=== PATIENT | male | born 1955 | race American Indian/Alaskan Native ===

== ENCOUNTER 2019-07-10 19:30 | Emergency (ER) | payer SELFPAY ==
[2019-07-10 19:38] VITALS: BP 140/87
--- NOTE | 2019-07-10 21:04 | Event Note ---
ED Screening Note ED Screening Note: states he difficulty hearing out of the right ear, states his eye sight has slowly been declining was seen at [facility] was supposed to go back to [facility] for placement, states he did not have a ride there states that he wants "placement in a [facility]" states he is homeless This initial assessment/diagnostic orders/clinical plan/treatment(s) is/are subject to change based on patients health status, clinical progression and re- assessment by fellow clinical providers in the ED. Further treatment and workup at subsequent clinical providers discretion. Patient/guardian urged not to elope from the ED as their condition may be serious if not clinically assessed and managed.
--- NOTE | 2019-07-11 00:12 | Emergency Department Report ---
Chief Complaint: Medical Clearance Stated Complaint: NEEDS [facility] PLACMENT Time Seen by Provider: 07/10/19 21:01 - Exam Vital Signs: Vital Signs 07/10/19 19:36 Temperature 98.2 F Pulse Rate 105 H Respiratory 20 Rate Blood Pressure 140/87 O2 Sat by Pulse 96 Oximetry MSE screening note: Focused history and physical exam performed. Due to findings the following was ordered: ED Medical Decision Making - Medical Decision Making Mr. Diop is a 63-year-old male with a history of ruptured eardrum, hypertension, diabetes mellitus who presents to the emergency department for homelessness. He states that he is from [place]. He states that he is homeless. He has a history of schizoaffective disorder. Denies suicidal homicidal or homicidal ideation No auditory visual hallucinations. Des[facility] placement [facility] [facility]. He does not have an acute emergent medical condition. He appears well and ambulatory. It was suggested that he goes home a [facility] contact his family members for assistance. ED Disposition for MSE Clinical Impression: Encounter for medical screening examination Disposition: Z- ELOPED Condition: Stable
== END 2019-07-11 00:30 | disposition left against medical advice (07) ==
LOC: ED 19:30
DX: Z00.00 Encounter for general adult medical examination without abnormal findings (principal); I10 Essential (primary) hypertension; E11.9 Type 2 diabetes mellitus without complications; Z59.0 Homelessness
CPT/HCPCS: 99281

== ENCOUNTER 2019-07-11 01:47 | Emergency (ER) | payer MEDICAID ==
[2019-07-11] MEDS ORDERED: ZIPRASIDONE MESYLATE 20 MG VIAL IM STA (01:51)
--- NOTE | 2019-07-11 01:56 | Emergency Department Report ---
<SHIRAAWA - Last Filed: 07/11/19 03:03> ED Psych HPI - General Stated Complaint: MH Time Seen by Provider: 07/11/19 01:49 Source: patient Mode of arrival: Ambulatory Limitations: No Limitations - History of Present Illness Initial Comments: CC: "I'm homicidal." HPI: Mr. Diop is a 63 yo male who returns to the ED after recently eloping. He has hx of schizoaffective disorder, HTN and diabetes mellitus. He initially came to the ED because he desired placement for living arrangements. He then left the ED. He called 911 stating he was "homicidal". "I am going to f--- you up." He denies suicidal ideation. He states that "starr people are strange." He denies physical complaints other than a previous diagnosis of a ruptured ear drum. MD Complaint: other (homicidal ideation) -: unknown Associated Psychiatric Symptoms: homicidal ideation History of same: Yes Quality: constant Improves With: none Worsens With: none Context: other (unknown) Associated Symptoms: denies other symptoms - Related Data Home Medications Medication Instructions Recorded Confirmed Last Taken Metformin HCl [metFORMIN] 1,000 mg PO BID 06/02/19 07/11/19 06/02/19 10:00 Omeprazole 20 mg PO DAILY 06/02/19 07/11/19 06/02/19 10:00 Ondansetron [Zofran ODT TAB] 4 mg PO Q6HR PRN 06/02/19 07/11/19 06/02/19 10:00 Previous Rx's Medication Instructions Recorded Last Taken Type Amlodipine Besylate [Norvasc] 10 mg PO DAILY #60 06/09/19 Unknown Rx Benztropine [Cogentin] 0.5 mg PO DAILY #30 tablet 06/09/[address] [Depakote Dr] 250 mg PO BID #60 tablet 06/09/19 Unknown Rx Doxepin [SINEquan] 10 mg PO QHS #30 capsule 06/09/19 Unknown Rx Insulin Glargine [Lantus VIAL] 43 units SQ QHS #5 syr 06/09/19 Unknown Rx Levothyroxine [Synthroid] 25 mcg PO QAM #30 06/09/19 Unknown Rx Pantoprazole [Protonix TAB] 20 mg PO QDAY #30 tablet. 06/09/19 Unknown Rx busPIRone [Buspar] 10 mg PO BID #60 tablet 06/09/19 Unknown Rx lisinopriL [Zestril TAB] 10 mg PO DAILY #30 06/09/19 Unknown Rx metFORMIN [Glucophage] 1,000 mg PO BIDDIAB #60 tablet 06/09/19 Unknown Rx risperiDONE [RisperDAL] 1 mg PO BID #60 tablet 06/09/19 Unknown Rx Allergies Allergy/AdvReac Type Severity Reaction Status Date / Time No Known Allergies Allergy Verified 04/30/18 05:51 ED Review of Systems Comment: All other systems reviewed and negative Constitutional: denies: fever, malaise Respiratory: denies: cough Cardiovascular: denies: chest pain ED Past Medical Hx - Past Medical History Previous Medical History?: Yes Hx Hypertension: Yes Hx Diabetes: Yes Hx Psychiatric Treatment: Yes (psychosis. paranoia, schizoaffective) Hx Asthma: Yes Additional medical history: thyroid - Surgical History Additional Surgical History: ABD - Social History Smoking Status: Current Every Day Smoker Substance Use Type: Marijuana - Medications Home Medications: Home Medications Medication Instructions Recorded Confirmed Last Taken Type Metformin HCl [metFORMIN] 1,000 mg PO BID 06/02/19 07/11/19 06/02/19 10:00 History Omeprazole 20 mg PO DAILY 06/02/19 07/11/19 06/02/19 10:00 History Ondansetron [Zofran ODT TAB] 4 mg PO Q6HR PRN 06/02/19 07/11/19 06/02/19 10:00 History Amlodipine Besylate [Norvasc] 10 mg PO DAILY #60 06/09/19 07/11/19 Unknown Rx Benztropine [Cogentin] 0.5 mg PO DAILY #30 tablet 06/09/19 07/11/19 Unknown Rx Divalproex [Vashti Lovell] 250 mg PO BID #60 tablet 06/09/19 07/11/19 Unknown Rx Doxepin [SINEquan] 10 mg PO QHS #30 capsule 06/09/19 07/11/19 Unknown Rx Insulin Glargine [Lantus VIAL] 43 units SQ QHS #5 syr 06/09/19 07/11/19 Unknown Rx Levothyroxine [Synthroid] 25 mcg PO QAM #30 01/22/20 02/23/20 Unknown Rx Pantoprazole [Protonix TAB] 20 mg PO QDAY #30 tablet. 06/09/19 07/11/19 Unknown Rx busPIRone [Buspar] 10 mg PO BID #60 tablet 06/09/19 07/11/19 Unknown Rx lisinopriL [Zestril TAB] 10 mg PO DAILY #30 06/09/19 07/11/19 Unknown Rx metFORMIN [Glucophage] 1,000 mg PO BIDDIAB #60 tablet 06/09/19 07/11/19 Unknown Rx risperiDONE [RisperDAL] 1 mg PO BID #60 tablet 06/09/19 07/11/19 Unknown Rx ED Physical Exam - General Limitations: No Limitations General appearance: alert, in no apparent distress, other (appears well, ambulatoryh) - Head Head exam: Present: atraumatic, normocephalic - Eye Eye exam: Present: normal appearance - ENT ENT exam: Present: mucous membranes moist - Neck Neck exam: Present: normal inspection, full ROM - Respiratory Respiratory exam: Absent: respiratory distress - Cardiovascular Cardiovascular Exam: Absent: systolic murmur, diastolic murmur, rubs, gallop - GI/Abdominal GI/Abdominal exam: Present: soft, normal bowel sounds. Absent: distended, tenderness, guarding, rebound - Rectal Rectal exam: Present: deferred - Extremities Exam Extremities exam: Present: normal inspection - Back Exam Back exam: Present: normal inspection - Neurological Exam Neurological exam: Present: alert, oriented X3 - Psychiatric Psychiatric exam: Present: normal affect, agitated - Skin Skin exam: Present: warm, dry, intact, normal color. Absent: rash ED Medical Decision Making - Lab Data Result diagrams: 07/11/19 02:05 07/11/19 02:05 - Medical Decision Making Mr. Diop is a 63 yo male with schizoaffective disorder who returns to the ED with homicidal ideation. Due to poor insight and erratic impulsive behavior, he required chemical restraint upon arrival. He is medically clear for psychiatric care. Awaiting treatment recommendations by our psychiatric team. CBC chemistry within normal limits serum toxicology urine drug screen urinalysis within normal limits. Valproic acid level non therapeutic ED Disposition Clinical Impression: Encounter for medical screening examination, Schizo-affective schizophrenia Disposition: - TO HOME OR SELFCARE Condition: Stable Referrals: EMEKA HUGO MD [Primary Care Provider] - 3-5 Days <JACI SILVA - Last Filed: 07/11/19 14:21> ED Review of Systems ROS: Stated complaint: MH Other details as noted in HPI ED Course Vital Signs 07/11/19 07/11/19 07/11/19 02:10 02:45 08:37 Temperature 97.6 F 98.4 F Pulse Rate 94 H 92 H Respiratory 18 18 18 Rate Blood Pressure 187/90 183/99 O2 Sat by Pulse 100 98 97 Oximetry 07/11/19 09:32 Temperature Pulse Rate 92 H Respiratory Rate Blood Pressure 183/99 O2 Sat by Pulse Oximetry - Reevaluation(s) Reevaluation #1: 07/11/19 14:20 Patient currently is calm cooperative and much more organized state. Patient is been medically cleared by our mental health spiral binder's. Please see note below. SANDEE DIOP Male : 1955 MedRec# [id number] 07/11/19 12:38 - MH Van Driver's Note by DRU MONGE Acct Num: [id number] : 1955 Patient Age: 63 Pt is a 63 yo AA male, presenting to ED for MHE as pt reported needing assistance with housing and HI. Pt is well known to this spiral binder and was just stabilized/discharged June 08, 2019. During ax, pt presented as cooperative, with calm mood and congruent affect. Pt presents with circumstantial thought process and required redirection throughout ax. Pt reports having issues with seeing and needing cataract surgery. Per pt, he spoke with a staff member at [facility] last week, who instructed him to come on site for assistance with surgery and half-way placement. Pt reports failure to transport due to transportation barrier. Pt informed spiral binder that sister in law planned to transport him to [facility] July 22, 2019. Pt denies SI/HI and A/V H. Pt reports endorsing HI yesterday because the people at his home placement threw his food out. Pt denied plan. Pt reports dx of Schizophrenia with connection to [facility] and compliance with medication. Pt reports residing in a [facility] setting, with desire to admit to a half-way facility. Pt reports occasional marijuana use and denies legal issues. Pt denies issues with appetite. Recommendations: Pt denies SI/HI and does not present with acute psychosis. Van Driver recommending discharge, with f/u Op casemanager to assist with nrusing home placement. Pt is connected to [facility]. Initialized on 07/11/19 12:38 - END OF NOTE ED Medical Decision Making - Lab Data Result diagrams: 07/11/19 02:05 07/11/19 02:05 Lab Results 07/11/19 07/11/19 07/11/19 Range/Units 02:05 02:05 02:05 WBC 7.2 (4.5-11.0) K/mm3 RBC 4.41 (3.65-5.03) M/mm3 Hgb 13.2 (11.8-15.2) gm/dl Hct 39.3 (35.5-45.6) % MCV 89 (84-94) fl MCH 30 (28-32) pg MCHC 34 (32-34) % RDW 14.4 (13.2-15.2) % Plt Count 305 (140-440) K/mm3 Lymph % (Auto) 29.1 (13.4-35.0) % Garfield % (Auto) 13.2 H (0.0-7.3) % Eos % (Auto) 1.2 (0.0-4.3) % Baso % (Auto) 0.3 (0.0-1.8) % Lymph # 2.1 (1.2-5.4) K/mm3 Garfield # 1.0 H (0.0-0.8) K/mm3 Eos # 0.1 (0.0-0.4) K/mm3 Baso # 0.0 (0.0-0.1) K/mm3 Seg Neutrophils % 56.2 (40.0-70.0) % Seg Neutrophils # 4.1 (1.8-7.7) K/mm3 Sodium 140 (137-145) mmol/L Potassium 4.7 (3.6-5.0) mmol/L Chloride 101.5 (98-107) mmol/L Carbon Dioxide 24 (22-30) mmol/L Anion Gap 19 mmol/L BUN 30 H (9-20) mg/dL Creatinine 1.7 H (0.8-1.5) mg/dL Estimated GFR 50 ml/min BUN/Creatinine Ratio 18 % Glucose 286 H (75-100) mg/dL Calcium 9.5 (8.4-10.2) mg/dL Total Bilirubin 0.20 (0.1-1.2) mg/dL AST 39 (5-40) units/L ALT 38 (7-56) units/L Alkaline Phosphatase 111 (35-129) units/L Total Protein 7.5 (6.3-8.2) g/dL Albumin 3.5 L (3.9-5) g/dL Albumin/Globulin Ratio 0.9 % Urine Color (Yellow) Urine Turbidity (Clear) Urine pH (5.0-7.0) Ur Specific [place] (1.003-1.030) Urine Protein (Negative) mg/dL Urine Glucose (UA) (Negative) mg/dL Urine Ketones (Negative) mg/dL Urine Blood (Negative) Urine Nitrite (Negative) Urine Bilirubin (Negative) Urine Urobilinogen (<2.0) mg/dL Ur Leukocyte Esterase (Negative) Urine WBC (Auto) (0.0-6.0) /HPF Urine RBC (Auto) (0.0-6.0) /HPF U Epithel Cells (Auto) (0-13.0) /HPF Urine Bacteria (Auto) (Negative) /HPF Hyaline Casts /LPF Urine Mucus /HPF Salicylates < 0.3 L (2.8-20.0) mg/dL Urine Opiates Screen Urine Methadone Screen Acetaminophen (10.0-30.0) ug/mL Ur Barbiturates Screen Valproic Acid < 2.8 L (50-100) ug/mL Ur Phencyclidine Scrn Ur Amphetamines Screen U Benzodiazepines Scrn Urine Cocaine Screen U Marijuana (THC) Screen Drugs of Abuse Note Plasma/Serum Alcohol (0-0.07) % 07/11/19 07/11/19 07/11/19 Range/Units 02:05 02:05 Unknown WBC (4.5-11.0) K/mm3 RBC (3.65-5.03) M/mm3 Hgb (11.8-15.2) gm/dl Hct (35.5-45.6) % MCV (84-94) fl MCH (28-32) pg MCHC (32-34) % RDW (13.2-15.2) % Plt Count (140-440) K/mm3 Lymph % (Auto) (13.4-35.0) % Garfield % (Auto) (0.0-7.3) % Eos % (Auto) (0.0-4.3) % Baso % (Auto) (0.0-1.8) % Lymph # (1.2-5.4) K/mm3 Garfield # (0.0-0.8) K/mm3 Eos # (0.0-0.4) K/mm3 Baso # (0.0-0.1) K/mm3 Seg Neutrophils % (40.0-70.0) % Seg Neutrophils # (1.8-7.7) K/mm3 Sodium (137-145) mmol/L Potassium (3.6-5.0) mmol/L Chloride (98-107) mmol/L Carbon Dioxide (22-30) mmol/L Anion Gap mmol/L BUN (9-20) mg/dL Creatinine (0.8-1.5) mg/dL Estimated GFR ml/min BUN/Creatinine Ratio % Glucose (75-100) mg/dL Calcium (8.4-10.2) mg/dL Total Bilirubin (0.1-1.2) mg/dL AST (5-40) units/L ALT (7-56) units/L Alkaline Phosphatase (35-129) units/L Total Protein (6.3-8.2) g/dL Albumin (3.9-5) g/dL Albumin/Globulin Ratio % Urine Color Yellow (Yellow) Urine Turbidity Clear (Clear) Urine pH 5.0 (5.0-7.0) Ur Specific [place] 1.020 (1.003-1.030) Urine Protein 300 mg/dl (Negative) mg/dL Urine Glucose (UA) 150 (Negative) mg/dL Urine Ketones Neg (Negative) mg/dL Urine Blood Sm (Negative) Urine Nitrite Neg (Negative) Urine Bilirubin Neg (Negative) Urine Urobilinogen < 2.0 (<2.0) mg/dL Ur Leukocyte Esterase Neg (Negative) Urine WBC (Auto) 1.0 (0.0-6.0) /HPF Urine RBC (Auto) 2.0 (0.0-6.0) /HPF U Epithel Cells (Auto) < 1.0 (0-13.0) /HPF Urine Bacteria (Auto) 1+ (Negative) /HPF Hyaline Casts 1 /LPF Urine Mucus Few /HPF Salicylates (2.8-20.0) mg/dL Urine Opiates Screen Urine Methadone Screen Acetaminophen < 5.0 L (10.0-30.0) ug/mL Ur Barbiturates Screen Valproic Acid (50-100) ug/mL Ur Phencyclidine Scrn Ur Amphetamines Screen U Benzodiazepines Scrn Urine Cocaine Screen U Marijuana (THC) Screen Drugs of Abuse Note Plasma/Serum Alcohol < 0.01 (0-0.07) % 07/11/19 Range/Units Unknown WBC (4.5-11.0) K/mm3 RBC (3.65-5.03) M/mm3 Hgb (11.8-15.2) gm/dl Hct (35.5-45.6) % MCV (84-94) fl MCH (28-32) pg MCHC (32-34) % RDW (13.2-15.2) % Plt Count (140-440) K/mm3 Lymph % (Auto) (13.4-35.0) % Garfield % (Auto) (0.0-7.3) % Eos % (Auto) (0.0-4.3) % Baso % (Auto) (0.0-1.8) % Lymph # (1.2-5.4) K/mm3 Garfield # (0.0-0.8) K/mm3 Eos # (0.0-0.4) K/mm3 Baso # (0.0-0.1) K/mm3 Seg Neutrophils % (40.0-70.0) % Seg Neutrophils # (1.8-7.7) K/mm3 Sodium (137-145) mmol/L Potassium (3.6-5.0) mmol/L Chloride (98-107) mmol/L Carbon Dioxide (22-30) mmol/L Anion Gap mmol/L BUN (9-20) mg/dL Creatinine (0.8-1.5) mg/dL Estimated GFR ml/min BUN/Creatinine Ratio % Glucose (75-100) mg/dL Calcium (8.4-10.2) mg/dL Total Bilirubin (0.1-1.2) mg/dL AST (5-40) units/L ALT (7-56) units/L Alkaline Phosphatase (35-129) units/L Total Protein (6.3-8.2) g/dL Albumin (3.9-5) g/dL Albumin/Globulin Ratio % Urine Color (Yellow) Urine Turbidity (Clear) Urine pH (5.0-7.0) Ur Specific [place] (1.003-1.030) Urine Protein (Negative) mg/dL Urine Glucose (UA) (Negative) mg/dL Urine Ketones (Negative) mg/dL Urine Blood (Negative) Urine Nitrite (Negative) Urine Bilirubin (Negative) Urine Urobilinogen (<2.0) mg/dL Ur Leukocyte Esterase (Negative) Urine WBC (Auto) (0.0-6.0) /HPF Urine RBC (Auto) (0.0-6.0) /HPF U Epithel Cells (Auto) (0-13.0) /HPF Urine Bacteria (Auto) (Negative) /HPF Hyaline Casts /LPF Urine Mucus /HPF Salicylates (2.8-20.0) mg/dL Urine Opiates Screen Presumptive negative Urine Methadone Screen Presumptive negative Acetaminophen (10.0-30.0) ug/mL Ur Barbiturates Screen Presumptive negative Valproic Acid (50-100) ug/mL Ur Phencyclidine Scrn Presumptive negative Ur Amphetamines Screen Presumptive negative U Benzodiazepines Scrn Presumptive negative Urine Cocaine Screen Presumptive negative U Marijuana (THC) Screen Presumptive negative Drugs of Abuse Note Disclamer Plasma/Serum Alcohol (0-0.07) % Critical care attestation.: If time is entered above; I have spent that time in minutes in the direct care of this critically ill patient, excluding procedure time. ED Disposition Is pt being admited?: No Does the pt Need Aspirin: No Time of Disposition: 14:21
[2019-07-11 02:13] LABS: Bacteria,Urine 1+ /HPF (Negative); Bilirubin,Urine NEG (Negative); Blood,Urine SM (Negative); Color,Urine Yellow (Yellow); Hyaline Casts,Urine 1 /LPF; Mucus,Urine FEW /HPF; Urobilinogen,Urine < 2.0 mg/dL (<2.0)
[2019-07-11 02:16] LABS: Basophils % (Auto) 0.3 % (0.0-1.8); Eosinophils # (Auto) 0.1 K/mm3 (0.0-0.4); Eosinophils % (Auto) 1.2 % (0.0-4.3); Hematocrit 39.3 % (35.5-45.6); Hemoglobin 13.2 gm/dl (11.8-15.2); Lymphocytes # (Auto) 2.1 K/mm3 (1.2-5.4); Lymphocytes % (Auto) 29.1 % (13.4-35.0); Mean Corpuscular HGB Conc 34 % (32-34); Mean Corpuscular Volume 89 fl (84-94); Monocytes % (Auto) 13.2 % (0.0-7.3); Platelet Count 305 K/mm3 (140-440); Red Blood Count 4.41 M/mm3 (3.65-5.03); Red Cell Distribution Width 14.4 % (13.2-15.2)
[2019-07-11 02:17] LABS: Protein,Urine 300 mg/dL mg/dL (Negative)
[2019-07-11 02:18] LABS: Amphetamine Screen,Urine PRESUMPTIVE NEGATIVE; Benzodiazepines Screen,Urine PRESUMPTIVE NEGATIVE; Cannabinoid Screen,Urine PRESUMPTIVE NEGATIVE; Cocaine Screen,Urine PRESUMPTIVE NEGATIVE; Methadone Screen,Urine PRESUMPTIVE NEGATIVE; Opiate Screen,Urine PRESUMPTIVE NEGATIVE
[2019-07-11 02:31] LABS: Albumin 3.5 g/dL (3.9-5); Calcium 9.5 mg/dL (8.4-10.2)
[2019-07-11] MEDS ORDERED: metFORMIN 500 MG TAB PO SCH (08:00)
[2019-07-11 08:39] VITALS: BP 183/99
[2019-07-11] MEDS ORDERED: LEVOTHYROXINE 75 MCG TAB PO SCH (10:00)
[2019-07-11] MEDS ORDERED: LISINOPRIL 10 MG TAB PO SCH (10:00)
[2019-07-11] MEDS ORDERED: LEVOTHYROXINE 25 MCG TAB PO SCH (10:00)
[2019-07-11] MEDS ORDERED: PANTOPRAZOLE 20 MG TAB PO SCH (10:00)
[2019-07-11] MEDS ORDERED: INSULIN GLARGINE 100 UNITS/ML SUB-Q SCH (22:00)
== END 2019-07-11 14:49 | disposition home or self-care (01) ==
LOC: ED 01:47
DX: F20.9 Schizophrenia, unspecified (principal); I10 Essential (primary) hypertension; E11.9 Type 2 diabetes mellitus without complications; J45.909 Unspecified asthma, uncomplicated; F12.90 Cannabis use, unspecified, uncomplicated; F17.200 Nicotine dependence, unspecified, uncomplicated; Z79.899 Other long term (current) drug therapy
CPT/HCPCS: 36415; 80053; 80164; 80307; 81001; 85025; 96372; 99284; J3486; 80320; G0480